=== PATIENT | female | born 1990 | race Caucasian/White ===

== ENCOUNTER 2018-10-06 10:28 | Emergency (ER) | payer MEDICAID ==
[2018-10-06 10:29] VITALS: BMI 22.0
[2018-10-06 10:35] VITALS: RESP 18; O2SAT 100
[2018-10-06] MEDS ORDERED: Sodium Chloride 0.9% 1,000 ML IV STA (11:04)
--- NOTE | 2018-10-06 11:07 | ED PDOC ---
HPI: Abdomen Time Seen by Provider: 10/06/18 10:44 Chief Complaint (Nursing): Abdominal Pain Chief Complaint (Provider): epigastric pain Associated Symptoms: Nausea, Vomiting. denies: Fever Additional Complaint(s): 28 y/o F 19 week who presents with epigastric pain. Pt states that she has been having epigastric pain for several weeks and had a gallbladder ultrasound one week ago that showed gallstones. She was given Nexium by her Furnace Worker with no relief of discomfort. She denies taking any other medications for the pain. States that the pain is non-radiating and she has been having N/V for several weeks, usually once a day in the morning, last emesis was this morning. Denies radiation of the pain to arm or jaw. Denies HTN, HL, CAD/[place]. Further denies fever, chills, night sweats, diarrhea, chest pain, SOB. Rates pain 8/10 on pain scale and does not allow her to sleep. Past Medical History Reviewed: Historical Data, Nursing Documentation, Vital Signs Vital Signs: Last Vital Signs Temp 98.5 F 10/06/18 10:34 Pulse 78 10/06/18 10:34 Resp 18 10/06/18 10:34 BP 113/77 10/06/18 10:34 Pulse Ox 100 10/06/18 10:34 - Medical History PMH: Denies: Chronic Kidney Disease Other PMH: cholelithiasis - Family History Family History: States: Unknown Family Hx - Immunization History Hx Tetanus Toxoid Vaccination: No Hx Influenza Vaccination: Yes Hx Pneumococcal Vaccination: No - Home Medications Home Medications: Ambulatory Orders Medication Instructions Recorded Percocet 325 mg-5 mg 08/10/13 Acetaminophen/Oxycodone Hydr 1 tab PO Q4H #15 tab 08/11/13 [Percocet 325 mg-5 mg] Amoxicillin/Clavulanate [Augmentin 1 tab PO BID #14 tab 08/11/13 875 MG-125 MG] Fluticasone Propionate [Flonase] 0.05 mg NS BID PRN #1 bottle 08/11/13 Ibuprofen [Motrin] 600 mg PO Q6 PRN #30 tab 08/11/13 Ibuprofen 1 tab PO TID PRN #30 tab 12/13/13 Ondansetron ODT [Zofran ODT] 4 mg PO Q8 PRN 5 Days odt 10/06/18 Pantoprazole Sodium [Protonix] 40 mg PO DAILY #7 ect 10/06/18 - Allergies Allergies/Adverse Reactions: Allergies Allergy/AdvReac Type Severity Reaction Status Date / Time No Known Allergies Allergy Verified 07/28/13 08:09 Review of Systems Constitutional: Negative for: Fever, Chills, Sweats Cardiovascular: Negative for: Chest Pain Respiratory: Negative for: Shortness of Breath Gastrointestinal: Positive for: Nausea, Vomiting, Abdominal Pain. Negative for: Diarrhea Physical Exam - Reviewed Nursing Documentation Reviewed: Yes Vital Signs Reviewed: Yes - Physical Exam Appears: Positive for: Uncomfortable Skin: Positive for: Normal Color Cardiovascular/Chest: Positive for: Regular Rate, Rhythm Respiratory: Positive for: Normal Breath Sounds Gastrointestinal/Abdominal: Positive for: Soft, Tenderness (epigastric, mild RLQ. ). Negative for: Distended, Guarding, Rebound Neurologic/Psych: Positive for: Alert, Oriented - Laboratory Results Result Diagrams: 10/06/18 11:30 10/06/18 11:30 - ECG O2 Sat by Pulse Oximetry: 100 Medical Decision Making Medical Decision Making: CBC, CMP Urine preg GB ultrasound NS 1L Pepcid 20mg IV x 1 12:50: re-evaluated: no improvement in pain, will be given Tylenol 650mg PO x 1. Awaiting ultrasound results. Labs unremarkable. Ultrasound: Gallstones with gallbladder wall thickening. No positive sonographic Shafer sign reported. Findings can be seen with cholecystitis. Conceivably acute on chronic pathology is not excluded. No gross pericholecys tic fluid seen. Close clinical follow-up advised. Clinical history of 19 weeks status. 14:00:Surgery consulted for further evaluation of possible cholecystitis/surgical management of cholelithiasis. awaiting surgeon. 15:00: seen by surgery, no indication for surgical management of cholelithiasis at this time. Symptoms likely due to acid reflux. Pt to be discharged home on P rotonix and Zofran for nausea. Pt informed of discussion with surgeon and return instructions provided. Pt advised to continue f/u with her referral coordinator and return to ED if pain was intractable. Pt demonstrated understanding. Disposition - Clinical Impression Clinical Impression: Cholelithiasis affecting in second trimester, antepartum - Patient ED Disposition Is Patient to be Admitted: No Discussed With : Lev Kofman Counseled Patient/Family Regarding: Studies Performed, Diagnosis, Need For Followup - Disposition Referrals: Rosemary Webb MD [Staff Provider] - Disposition: Routine/Home Disposition Time: 16:46 Condition: FAIR Additional Instructions: F/u with Dr. Webb if your pain continues to worsen or return to ER if it becomes intolerable. Take Protonix daily to help with indigestion as well as Tums as needed. Take Zofran for nausea as needed. Prescriptions: Ondansetron ODT [Zofran ODT] 4 mg PO Q8 PRN 5 Days odt PRN Reason: Nausea/Vomiting Pantoprazole Sodium [Protonix] 40 mg PO DAILY #7 ect Instructions: Cholestasis of (DC) Forms: [employer] (Tanzanian) Print Language: MACEDONIAN
[2018-10-06 11:58] LABS: BASO % 0.3 % (0.0-2.0); EOS # 0.2 K/uL (0.0-0.7); EOS % 2.6 % (0.0-4.0); HEMOGLOBIN 11.7 g/dL (12.0-16.0); LYMPH # 1.8 K/uL (1.0-4.3); LYMPH % 19.7 % (20.0-40.0); MEAN CORPUSCULAR HEMOGLOBIN 29.2 pg (27.0-31.0); MEAN CORPUSCULAR HGB CONC 32.8 g/dL (33.0-37.0); MEAN PLATELET VOLUME 8.4 fl (7.2-11.7); MONO # 0.5 K/uL (0.0-0.8); MONO % 5.6 % (0.0-10.0); NEUT # 6.4 K/uL (1.8-7.0); NEUT % 71.8 % (50.0-75.0); NRBC % 0.3 % (0.0-0.0)
[2018-10-06 11:59] LABS: BLOOD UREA NITROGEN 5 mg/dl (7-17); GFR NON-AFRICAN AMERICAN > 60
[2018-10-06 12:00] LABS: ALB/GLOB RATIO 1.1 (1.0-2.1); ALBUMIN 3.6 g/dL (3.5-5.0); ALT/SGPT 44 U/L (9-52); AST/SGOT 36 U/L (14-36); CALCIUM 9.1 mg/dL (8.4-10.2)
--- NOTE | 2018-10-06 13:45 | US ---
Date of service: 10/06/2018 HISTORY: hx of cholelithiasis, 19wks COMPARISON: None. TECHNIQUE: Sonographic evaluation of the right upper quadrant of the abdomen. FINDINGS: LIVER: Measures 15.4 cm in length. Normal echogenicity of the liver parenchyma. No mass. No intrahepatic bile duct dilatation. GALLBLADDER: Multiple gallstones present. Gallbladder wall thickening at 3.96 mm. No sonographic Shafer sign reported. COMMON BILE DUCT: Measures 2.4 mm. No stones. No dilatation. PANCREAS: Limited due to bowel gas. RIGHT KIDNEY: Measures 10.1 x 4.9 by 5.0 cm cm in length. Normal echogenicity. No calculus, mass, or hydronephrosis. AORTA: No aneurysmal dilatation. IVC: Unremarkable. OTHER FINDINGS: Partially visualized is a a apparent enlarged uterus containing a fetus no further evaluation of the fetus is made at this setting. Clinical history states patient is 19 weeks . IMPRESSION: Gallstones with gallbladder wall thickening. No positive sonographic Shafer sign reported. Findings can be seen with cholecystitis. Conceivably acute on chronic pathology is not excluded. No gross pericholecystic fluid seen. Close clinical follow-up advised. Clinical history of 19 weeks status.
--- NOTE | 2018-10-06 15:43 | CP.PCM.CON ---
History of Present Illness - History of Present Illness History of Present Illness: General Surgery Progress Note: Enrrique 28F with no significant past medical history who is 19 weeks , presents to [facility] ED with complaints of epigastric pain. Patient states she's been having epigastric pain for the past few weeks. Patient states she will feel nauseous intermittently. Patient states epigastric pain is worse at night. Denies exacerbation of pain with food intake. She reports she is passing flatus and having normal BMs. Denies headaches/dizziness, chest pain, palpitations, shortness of breath, diarrhea, dysuria. PMHx: as stated above PSurgHx: All: NKDA Soc Hx: Denies smoking, EtOH use, illicit drug use Review of Systems - Review of Systems Review of Systems: 10 pt ROS unremarkable except as stated in HPI Past Patient History - Past Social History Smoking Status: Never Smoked - CARDIAC Hx Cardiac Disorders: No - PULMONARY Hx Respiratory Disorders: No - NEUROLOGICAL Hx Neurological Disorder: No - HEENT Hx HEENT Problems: No - RENAL Hx Chronic Kidney Disease: No - ENDOCRINE/METABOLIC Hx Endocrine Disorders: No - HEMATOLOGICAL/ONCOLOGICAL Hx Blood Disorders: No - INTEGUMENTARY Hx Dermatological Problems: No - MUSCULOSKELETAL/RHEUMATOLOGICAL Hx Musculoskeletal Disorders: No - GASTROINTESTINAL Hx Gastrointestinal Disorders: No - GENITOURINARY/GYNECOLOGICAL Hx Genitourinary Disorders: No - PSYCHIATRIC Hx Psychophysiologic Disorder: No Hx Substance Use: No - SURGICAL HISTORY Hx Surgeries: Yes Hx Section: Yes - ANESTHESIA Hx Anesthesia: Yes Hx Anesthesia Reactions: No Hx Malignant Hyperthermia: No Meds Allergies/Adverse Reactions: Allergies Allergy/AdvReac Type Severity Reaction Status Date / Time No Known Allergies Allergy Verified 07/28/13 08:09 Physical Exam - Constitutional Appears: Non-toxic, No Acute Distress - Head Exam Head Exam: NORMOCEPHALIC - Eye Exam Eye Exam: EOMI, Normal appearance - ENT Exam ENT Exam: Mucous Membranes Moist - Respiratory Exam Respiratory Exam: NORMAL BREATHING PATTERN - Cardiovascular Exam Cardiovascular Exam: +S1, +S2 - GI/Abdominal Exam GI & Abdominal Exam: Soft, Tenderness. absent: Distended, Guarding, Hernia, Rebound, Rigid Additional comments: epigastric tenderness fundal height approx at umbilicus - Neurological Exam Neurological exam: Alert, Oriented x3 - Psychiatric Exam Psychiatric exam: Normal Mood - Skin Skin Exam: Dry, Intact, Warm Results - Vital Signs Recent Vital Signs: Last Vital Signs Temp 98.5 F 10/06/18 10:34 Pulse 78 10/06/18 10:34 Resp 18 10/06/18 10:34 BP 113/77 10/06/18 10:34 Pulse Ox 100 10/06/18 12:59 - Labs Result Diagrams: 10/06/18 11:30 10/06/18 11:30 Labs: Laboratory Results - last 24 hr 10/06/18 10/06/18 11:30 11:30 WBC 9.0 RBC 4.00 Hgb 11.7 L Hct 35.5 MCV 89.0 MCH 29.2 MCHC 32.8 L RDW 13.0 Plt Count 245 MPV 8.4 Neut % (Auto) 71.8 Lymph % (Auto) 19.7 L [place] % (Auto) 5.6 Eos % (Auto) 2.6 Baso % (Auto) 0.3 Neut # (Auto) 6.4 Lymph # (Auto) 1.8 [place] # (Auto) 0.5 Eos # (Auto) 0.2 Baso # (Auto) 0.0 Sodium 135 Potassium 3.9 Chloride 105 Carbon Dioxide 25 Anion Gap 9 L BUN 5 L Creatinine 0.4 L Est GFR ( Amer) > 60 Est GFR (Non-Af Amer) > 60 Random Glucose 71 Calcium 9.1 Total Bilirubin 0.5 AST 36 ALT 44 Alkaline Phosphatase 68 Total Protein 7.0 Albumin 3.6 Globulin 3.4 Albumin/Globulin Ratio 1.1 Assessment & Plan - Assessment and Plan (Free Text) Assessment: 28F with epigastric pain 2/2 acid reflux Plan: -No evidence of acute cholecystitis -Recommend PO antacid -Recommend anti-emetic -No acute surgical intervention needed at this present time D/w Dr. Enrrique Cook PGY3
[2018-10-06 16:52] VITALS: BP 110/61; PULSE 81; TEMP 98.4
== END 2018-10-06 16:50 | disposition home or self-care (01) ==
LOC: H.ER 10:28
DX: O99.612 Diseases of the digestive system complicating pregnancy, second trimester (principal); K80.20 Calculus of gallbladder without cholecystitis without obstruction; Z3A.19 19 weeks gestation of pregnancy
CPT/HCPCS: 76705; 80053; 81025; 85025; 96374; 99285; J7030